=== PATIENT | female | born 1995 | race Caucasian/White ===

== ENCOUNTER 2022-04-28 13:57 | Outpatient (CLI) | payer MEDICAID, SELFPAY ==
[2022-04-28 17:13] LABS: Cholesterol* 159 mg/dL (90-199)
[2022-04-28 17:14] LABS: Glucose* 91 mg/dL (60-115); HDL Cholesterol* 41 mg/dL (>=50); LDL Cholesterol Calculated 102 mg/dL (<100); Triglycerides* 80 mg/dL (40-149)
== END 2022-04-28 13:58 | disposition home or self-care (01) ==
PROVIDERS: PCP Nurse Practitioner Family; Visit Provider Registered Nurse
DX: Z01.419 Encounter for gynecological examination (general) (routine) without abnormal findings (principal); N92.0 Excessive and frequent menstruation with regular cycle; Z83.3 Family history of diabetes mellitus; Z13.6 Encounter for screening for cardiovascular disorders; Z13.1 Encounter for screening for diabetes mellitus
CPT/HCPCS: 80061; 82947; 84443

== ENCOUNTER 2022-08-24 15:45 | Outpatient (CLI) | payer MEDICAID, SELFPAY ==
--- NOTE | 2022-08-24 16:00 | CRLHL7_ITS ---
For Patients: As a result of the Century Cures Act, medical imaging exams and procedure reports are released immediately into your electronic medical record. You may view this report before your referring provider. If you have questions, please contact your health care provider. INDICATION: ABNORMAL UTERINE BLEEDING COMPARISON: none TECHNIQUE: 2D clarke scale and color Doppler images were acquired of the pelvis using a transabdominal and transvaginal approach. FINDINGS: Sonographic images demonstrate a normal size and smooth outer contour of the uterus. Uterus measures 10.1 cm in length by 4.9 cm in AP diameter by 6.5 cm in transverse dimension. The myometrium has a normal uniform echotexture. The endometrial lining measures 7 mm in composite thickness. The endometrium has a somewhat lobular appearance within the fundal region suggesting the possibility of an underlying polyp measuring 17 x 7 x 15 millimeters. In addition, there is heterogeneity of the lower uterine segment endometrial stripe with prominence of the junctional zone. The right ovary measures 4.0 x 2.3 x 2.8 cm in size and the left ovary measures 3.8 x 2.5 x 1.9 cm. The ovaries demonstrate normal arterial and venous blood flow on color Doppler analysis. There are no suspicious fluid collections within the cul-de-sac. IMPRESSION: Possible endometrial polyp measuring 17 x 7 x 15 millimeters within the left fundal region. Suggestion of adenomyosis within the lower uterine segment endometrium. Dictated by Will Nelson MD @ 08/25/2022 9:05:07 AM (Electronically Signed)
== END 2022-08-24 15:46 | disposition home or self-care (01) ==
LOC: US 15:45
PROVIDERS: PCP Nurse Practitioner Family; Visit Provider Registered Nurse
DX: N92.0 Excessive and frequent menstruation with regular cycle (principal); N84.0 Polyp of corpus uteri
CPT/HCPCS: 76830; 76856

== ENCOUNTER 2024-10-10 11:12 | Outpatient (CLI) | payer BC, SELFPAY | END 2024-10-10 11:13 | disposition home or self-care (01) | LOC: NFLDUCREF 11:37 | PROVIDERS: Visit Provider Nurse Practitioner | DX: R30.0 Dysuria (principal) | CPT/HCPCS: 87086 ==

== ENCOUNTER 2025-01-01 08:33 | Outpatient (CLI) | payer BC, SELFPAY | END 2025-01-01 08:34 | disposition home or self-care (01) | PROVIDERS: PCP Registered Nurse; Visit Provider Registered Nurse | DX: Z00.01 Encounter for general adult medical examination with abnormal findings (principal); D50.9 Iron deficiency anemia, unspecified; N92.0 Excessive and frequent menstruation with regular cycle; Z13.6 Encounter for screening for cardiovascular disorders; Z13.228 Encounter for screening for other metabolic disorders | CPT/HCPCS: 80053; 80061; 82728; 84443 ==